=== PATIENT | female | born 1995 | race Caucasian/White ===

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

== ENCOUNTER 2017-02-07 20:13 | Emergency (ER) | payer OTHER ==
[2017-02-07 20:53] LABS: Basophils % (Auto) 0.5 % (0.0-1.8); Eosinophils % (Auto) 0.1 % (0.0-4.3); Hematocrit 44.1 % (30.3-42.9); Hemoglobin 14.4 gm/dl (10.1-14.3); Mean Corpuscular HGB Conc 33 % (30-34); Mean Corpuscular Hemoglobin 29 pg (28-32); Mean Corpuscular Volume 90 fl (79-97); Platelet Count 275 K/mm3 (140-440); Red Blood Count 4.93 M/mm3 (3.65-5.03); Red Cell Distribution Width 13.5 % (13.2-15.2); White Blood Count 15.1 K/mm3 (4.5-11.0)
[2017-02-07 20:58] LABS: Anion Gap 18 mmol/L; BUN/Creatinine Ratio 20; Blood Urea Nitrogen 10 mg/dL (7-17); Calcium 10.1 mg/dL (8.4-10.2); Carbon Dioxide 25 mmol/L (22-30); Chloride 102.6 mmol/L (98-107); Glucose 105 mg/dL (65-100); Potassium 4.5 mmol/L (3.6-5.0); Sodium 141 mmol/L (137-145)
--- NOTE | 2017-02-07 23:25 | Emergency Department Report ---
HPI - General Chief Complaint: Psych Time Seen by Provider: 02/07/17 22:20 - HPI HPI: This is a 21-year-old female who presents to the emergency department via EMS with the complaint of depression and some suicidal ideations. The patient says that she has been dealing with a lot of issues including bullying, problems with family, problems obtaining a job without a high school degree. She says that she deals with some undiagnosed depression and has done so for a while. However recently, it appears as if her sister "turned against me" and has been facilitating some cyber bullying and other bullying has left her feeling even more depressed and alone. Today she was at the house by herself and felt as if she needed some help, someone to talk to and she had some thoughts of suicide at that time. It appears as if she thought about the possibility of grabbing a knife but also says that "the idea of killing myself scares me." At this current time she denies any suicidal ideations but does admit to these thoughts and her feelings earlier today. She denies any medical conditions. He denies any auditory or visual hallucinations or any homicidal ideations. ED Past Medical Hx - Past Medical History Previous Medical History?: No - Surgical History Past Surgical History?: No - Social History Smoking Status: Current Some Day Smoker Substance Use Type: None - Medications Home Medications: Home Medications Medication Instructions Recorded Confirmed Last Taken Type HYDROcodone/APAP 10-325 [[place] 1 each PO Q4-6H PRN #12 tablet 10/18/14 Unknown Rx 10/325] Ondansetron [Zofran Odt] 4 mg SL Q6H PRN #8 tab.rapdis 10/18/14 Unknown Rx ED Review of Systems ROS: Stated complaint: SUICIDE Other details as noted in HPI Comment: All other systems reviewed and negative Constitutional: denies: chills, fever Eyes: denies: eye pain, eye discharge, vision change ENT: denies: ear pain, throat pain Respiratory: denies: cough, shortness of breath, wheezing Cardiovascular: denies: chest pain, palpitations Gastrointestinal: denies: abdominal pain, nausea, diarrhea Genitourinary: denies: urgency, dysuria, discharge Musculoskeletal: denies: back pain, joint swelling, arthralgia Skin: denies: rash, lesions Neurological: denies: headache, weakness, paresthesias Psychiatric: depression, suicidal thoughts. denies: auditory hallucinations, visual hallucinations, homicidal thoughts Physical Exam - Physical Exam Vital Signs: Vital Signs 02/07/17 20:23 Temperature 98.8 F Pulse Rate 68 Respiratory 18 Rate Blood Pressure 130/79 [Left] O2 Sat by Pulse 99 Oximetry Physical Exam: GENERAL: The patient is well-developed well-nourished. HENT: Normocephalic. Atraumatic. Patient has moist mucous membranes. EYES: Extraocular motions are intact. Pupils equal reactive to light bilaterally. NECK: Supple. Trachea is midline. CHEST/LUNGS: Clear to auscultation. There is no respiratory distress noted. HEART/CARDIOVASCULAR: Regular. There is no tachycardia. There is no gallop rub or murmur. ABDOMEN: Abdomen is soft, nontender. Patient has normal bowel sounds. There is no abdominal distention. SKIN: Skin is warm and dry. NEURO: The patient is awake, alert, and oriented. The patient is cooperative. The patient has no focal neurologic deficits. The patient has normal speech. MUSCULOSKELETAL: There is no tenderness or deformity. There is no limitation range of motion. There is no evidence of acute injury. PSYCH: Patient is tearful but otherwise appropriate. ED Course Vital Signs 02/07/17 20:23 Temperature 98.8 F Pulse Rate 68 Respiratory 18 Rate Blood Pressure 130/79 [Left] O2 Sat by Pulse 99 Oximetry ED Medical Decision Making - Lab Data Result diagrams: 02/07/17 20:32 02/07/17 20:32 - Medical Decision Making 21-year-old female presents after having some depression and making suicidal claims to 911. She does admit to doing so and admits to depression. Labs are mostly unremarkable. There is a leukocytosis of 15,000 but the patient has a mild urinary tract infection. She has been started on Macrobid twice daily for treatment of this. Vital signs stable throughout her ED course. The patient was made a 1013 secondary to those previous suicidal ideations and/or threats and will be seen by psychiatry. She appears medically cleared for any psychiatric placement. - Differential Diagnosis depression, bipolar disorder, substance abuse Critical Care Time: No Critical care attestation.: If time is entered above; I have spent that time in minutes in the direct care of this critically ill patient, excluding procedure time. ED Disposition Clinical Impression: Suicidal ideations Depression Qualifiers: Depression Type: unspecified Qualified Code(s): F32.9 - Major depressive disorder, single episode, unspecified Disposition: DC/TX-65 PSY HOSP/PSY UNIT Is pt being admited?: No Condition: Stable Time of Disposition: 03:58
[2017-02-08 00:43] LABS: Urine Drugs of Abuse Note Disclamer
[2017-02-08 00:58] LABS: Bacteria,Urine 1+ /HPF (Negative); Bilirubin,Urine NEG (Negative); Blood,Urine NEG (Negative); Ketones,Urine 20 mg/dL (Negative); Leukocyte Esterase,Urine MOD (Negative); Mucus,Urine FEW /HPF; Nitrite,Urine NEG (Negative); Protein,Urine <15 mg/dL mg/dL (Negative); Urobilinogen,Urine < 2.0 mg/dL (<2.0)
[2017-02-08] MEDS: MACROBID PO SCH ×2 (02:33→11:17)
[2017-02-08 13:02] VITALS: BP 111/62
--- NOTE | 2017-02-08 16:05 | Consultation ---
History of Present Illness - Reason for Consult Consult date: 02/08/17 Reason for consult: Mental Health Evaluation Requesting physician: DONA SEGOVIA - Chief Complaint Chief complaint: "I was stressed" - History of Present Psychiatric Illness This is a 21-year-old female who presents to the emergency department via EMS with the complaint of depression and possible SI's. Today patient is calm and cooperative during the assessment. She stated that she have a lot going with her life. She stated that she always take on other people problems and that have brought on "stress lately" in her life. She stated that she need to get her HS diploma so she can get a better job. Also, she stated having issues with her sister reference bullying. She stated that she plan to ignore her sister. She stated that she called the crisis line because she felt overwhelmed and mentioned the word "suicidal" but denies having a plan. She stated it was "only " a thought. She thought if she come to the hospital she would be able to speak with a counselor and be given a referral for outpatient psy services. I spoke with her mother Ms Mikala Sosa and she stated that she this is the first time her daughter has ever had a crisis. She stated that her daughter has never mention or attempted suicide in the past. She denies a dx of depression for her daughter. The patient is adamant that she wanted to talk with a therapist once she was admitted to [facility]. She denies SI/HI's and AVH's. She denies sleep disturbance and a poor appetite. She admit to smoking marijuana occasionally. She denies alcohol consumption (etoh). Medications and Allergies Allergies Allergy/AdvReac Type Severity Reaction Status Date / Time No Known Allergies Allergy Verified 10/14/16 16:05 Home Medications Medication Instructions Recorded Confirmed Last Taken Type HYDROcodone/APAP 10-325 [[place] 1 each PO Q4-6H PRN #12 tablet 10/18/14 Unknown Rx 10/325] Ondansetron [Zofran Odt] 4 mg SL Q6H PRN #8 tab.rapdis 10/18/14 Unknown Rx Active Meds: Active Medications Nitrofurantoin Macrocrystals (Macrobid) 100 mg PO BID LISA Last Admin: 02/08/17 11:17 Dose: 100 mg Past psychiatric history - Past Medical History Past Medical History: No medical history Past Surgical History: No surgical history - past Psychiatric treatment and history psychiatric treatment history: Denies a psy hx and a fam psy hx. Mental Status Exam - Vital signs Last Vital Signs Temp 98.3 F 02/08/17 12:50 Pulse 64 02/08/17 12:50 Resp 20 02/08/17 13:02 BP 111/62 02/08/17 12:50 Pulse Ox 98 02/08/17 13:02 - Exam Narrative exam: MSE: Appearance: calm, cooperative Behavior: regular eye contact Speech: regular rate and tone Mood: "emotional about being in the hospital" Affect: congruent Thought Process: linear Thought Content: denies SI/HI's and AVH's Motor Activity: ambulatory Cognition: A/O x3 Insight: fair Judgment: fair Results Result Diagrams: 02/07/17 20:32 02/07/17 20:32 Abnormal lab results 02/07/17 02/07/17 02/08/17 Range/Units 20:32 20:32 00:20 WBC 15.1 H (4.5-11.0) K/mm3 Hgb 14.4 H (10.1-14.3) gm/dl Hct 44.1 H (30.3-42.9) % Seg Neutrophils % 80.1 H (40.0-70.0) % Seg Neutrophils # 12.1 H (1.8-7.7) K/mm3 Creatinine 0.5 L (0.7-1.2) mg/dL Glucose 105 H (65-100) mg/dL Urine pH 8.0 H (5.0-7.0) Urine WBC (Auto) 44.0 H (0.0-6.0) /HPF All other labs normal. Assessment and Plan Assessment and plan: Impression: Acute Stress Reaction. Substance Use DO (marijuana). Today patient is calm and cooperative during the assessment. Patient denies SI/HI's. Positive for marijuana. Patient's mother Ms Mikala Sosa is her support system. Patient is no threat to self. DDx: R/O Mood DO, Substance Induced Mood DO Recommendation/Plan: Rescind 1013. Patient given outpatient psy/rehab services for [facility]. Discussed the importance to abstain from recreational drug use. Discussed generalized coping skills with patient.
--- NOTE | 2017-02-08 17:31 | Emergency Department Report ---
Blank Doc - Documentation Documentation: Patient is a 21-year-old female came with depression and possible suicidal ideation. Patient denied any suicidal ideation or homicidal ideation. Patient has been assessed by mental health and advised to rescind 1013. At this moment patient was still denying suicidal ideation and homicidal ideation discharge home to follow up with an outpatient as per mental health's recommendation.
== END 2017-02-08 18:50 | disposition home or self-care (01) ==
LOC: ED 20:13 → EEVIPCON 20:13 → ED 02-08 18:50
DX: F32.9 Major depressive disorder, single episode, unspecified (principal); R45.851 Suicidal ideations; F17.200 Nicotine dependence, unspecified, uncomplicated
CPT/HCPCS: 36415; 80048; 80307; 81001; 81025; 85025; 99284; G0480; 80320

== ENCOUNTER 2019-01-11 11:36 | Emergency (ER) | payer SELFPAY ==
[2019-01-11] MEDS ORDERED: TORADOL IV STA (15:09)
[2019-01-11] MEDS ORDERED: BENADRYL IV STA (15:09)
[2019-01-11] MEDS ORDERED: REGLAN IV STA (15:09)
[2019-01-11] MEDS ORDERED: NACL 0.9% 1000 ML 1,000 ML IV ONE (15:09)
[2019-01-11] MEDS ORDERED: ZOFRAN IV STA (15:09)
--- NOTE | 2019-01-11 15:09 | Emergency Department Report ---
ED Headache HPI - General Chief Complaint: Headache Stated Complaint: SEVERE HEADACHE Time Seen by Provider: 01/11/19 14:11 Source: patient - History of Present Illness Quality: moderate Head Injury Location: parietal Recent Head Trauma: occasional headaches Modifying Factors: worse with: exposure to light Associated Symptoms: denies: confusion, fatigue, facial pain, fever/chills, nausea/vomiting, nasal congestion, nasal drainage, numbness in legs/feet, rash, sinus infection, stiff neck, vision changes Allergies/Adverse Reactions: Allergies No Known Allergies Allergy (Verified 10/14/16 16:05) Home Medications: Ambulatory Orders HYDROcodone/APAP 10-325 [[place] 10/325] 1 each PO Q4-6H PRN #12 tablet 10/18/14 Ondansetron [Zofran Odt] 4 mg SL Q6H PRN #8 tab.rapdis 10/18/14 ED Review of Systems ROS: Stated complaint: SEVERE HEADACHE Other details as noted in HPI Comment: All other systems reviewed and negative ED Past Medical Hx - Past Medical History Previous Medical History?: No - Surgical History Past Surgical History?: No - Social History Smoking Status: Never Smoker Substance Use Type: None - Medications Home Medications: Home Medications Medication Instructions Recorded Confirmed Last Taken Type HYDROcodone/APAP 10-325 [[place] 1 each PO Q4-6H PRN #12 tablet 10/18/14 Unknown Rx 10/325] Ondansetron [Zofran Odt] 4 mg SL Q6H PRN #8 tab.rapdis 10/18/14 Unknown Rx ED Physical Exam - General Limitations: No Limitations General appearance: alert, in no apparent distress - Head Head exam: Present: atraumatic, normocephalic - Eye Eye exam: Present: normal appearance, PERRL, EOMI. Absent: nystagmus, periorbital swelling, periorbital tenderness Pupils: Present: normal accommodation, other (no papilledema) - ENT ENT exam: Present: normal exam, normal orophraynx, mucous membranes moist - Neck Neck exam: Present: normal inspection, tenderness, full ROM. Absent: lymphadenopathy, thyromegaly - Respiratory Respiratory exam: Present: normal lung sounds bilaterally. Absent: respiratory distress, wheezes, rales, chest wall tenderness, accessory muscle use, decreased breath sounds - Cardiovascular Cardiovascular Exam: Present: regular rate, normal rhythm. Absent: bradycardia, tachycardia, systolic murmur, diastolic murmur, rubs, gallop - GI/Abdominal GI/Abdominal exam: Present: soft, normal bowel sounds. Absent: tenderness, guarding, hypoactive bowel sounds, organomegaly - Extremities Exam Extremities exam: Present: normal inspection, normal capillary refill. Absent: full ROM - Back Exam Back exam: Present: normal inspection. Absent: CVA tenderness (R), CVA tenderness (L) - Neurological Exam Neurological exam: Present: alert, oriented X3, CN II-XII intact, normal gait - Psychiatric Psychiatric exam: Present: normal affect, normal mood - Skin Skin exam: Present: warm, dry, intact, normal color. Absent: rash ED Course Vital Signs 01/11/19 11:49 Temperature 98.2 F Pulse Rate 72 Respiratory 15 Rate Blood Pressure 114/77 [Left] O2 Sat by Pulse 99 Oximetry Critical care attestation.: If time is entered above; I have spent that time in minutes in the direct care of this critically ill patient, excluding procedure time. ED Disposition Condition: Stable Referrals: PRIMARY CARE, [Primary Care Provider] - 3-5 Days
[2019-01-11 16:10] VITALS: BP 114/63
== END 2019-01-11 17:30 | disposition home or self-care (01) ==
LOC: ED 11:36
DX: R51 Headache (principal); Z79.899 Other long term (current) drug therapy
CPT/HCPCS: 96374; 96375; 99282; J1200; J1885; J2405; J2765; J7030

== ENCOUNTER 2020-12-06 05:16 | Emergency (ER) | payer SELFPAY ==
[2020-12-06 05:28] VITALS: BP 116/60
== END 2020-12-06 05:25 | disposition left against medical advice (07) ==
LOC: ED 05:16
DX: M79.18 Myalgia, other site (principal); R50.9 Fever, unspecified; R05 Cough; Z53.21 Procedure and treatment not carried out due to patient leaving prior to being seen by health care provider